=== PATIENT | male | born 1945 | race Caucasian/White ===

== ENCOUNTER 2018-08-24 12:16 | Outpatient (CLI) | payer MEDICARE ==
--- NOTE | 2018-08-24 13:57 | RAD ---
RIGHT GREAT TOE: Date: 08/24/18 HISTORY: Joint pain. FINDINGS: Severe arthritic changes of the first metatarsophalangeal joint is seen with somewhat exuberant bony change, particularly along the distal end of the metatarsal. There are no signs of fracture or any gr oss bony erosive change. No soft tissue calcification. IMPRESSION: Marked arthritic changes of the first metatarsophalangeal joint. POS: ANEUDY
== END 2018-08-24 12:17 | disposition home or self-care (01) ==
LOC: BICRAD 12:16
PROVIDERS: ATTEND Podiatrist
DX: M79.674 Pain in right toe(s) (principal); M19.071 Primary osteoarthritis, right ankle and foot